=== PATIENT | male | born 1975 | race Two or more races ===

== ENCOUNTER 2021-05-07 07:33 | Day surgery (SDC) | payer OTHER ==
[~2021-05-07 07:33] MED LIST: CLARITIN10 M1 PO; DYMISTA NASAL S23 GM IH
[2021-05-07] MEDS ORDERED: PROTONIX40 MG PO (13:43)
[2021-05-07] MEDS ORDERED: CIPRO500 MG PO (13:43)
[2021-05-07] MEDS ORDERED: SURFAK240 M1 PO (13:44)
== END 2021-05-07 19:40 | disposition home or self-care (01) ==
LOC: CIR.AMB 07:33
PROVIDERS: ATTEND Surgery
DX: K43.6 Other and unspecified ventral hernia with obstruction, without gangrene (principal); Z20.822 Contact with and (suspected) exposure to COVID-19